=== PATIENT | male | born 1955 | race Caucasian/White ===

== ENCOUNTER 2020-05-22 07:21 | Inpatient (IN) | payer BC ==
[~2020-05-22] VITALS: Ht 188 cm; Wt 98.5 kg
[2020-05-22] MEDS ORDERED: SODIUM CHLORIDE FLUSH 10ML SYR IVF ONE (07:30)
[2020-05-22] MEDS ORDERED: PANTOPRAZOLE 80 MG in SODIUM CHLORIDE 0.9% 100 ML IV SCH (07:30)
[2020-05-22] MEDS ORDERED: VERA180T6 PO (07:38)
[2020-05-22] MEDS ORDERED: AZEL137S4 NAS (07:38)
[2020-05-22 07:56] LABS: BASOPHILS % (AUTO) 0 % (0-1); EOSINOPHILS % (AUTO) 0 % (1-7); LYMPHOCYTES % (AUTO) 7 % (22-44); MEAN CORPUSCULAR HEMOGLOBIN 28.5 pg (27.5-34.5); MEAN CORPUSCULAR HGB CONC 32.9 g/dL (33.2-36.2); MONOCYTES % (AUTO) 5 % (2-9); NEUTROPHILS % (AUTO) 88 % (42-75); PLATELET COUNT 194 x10^3/uL (130-400); RED BLOOD COUNT 2.25 x10^6/uL (4.38-5.82); RED CELL DISTRIBUTION WIDTH 20.5 % (9.4-14.8)
[2020-05-22 08:01] LABS: ALBUMIN 2.1 g/dL (3.4-5.0); ANION GAP 6 mmol/L (5-15); CALCIUM 9.3 mg/dL (8.5-10.1); CHLORIDE 106 mmol/L (98-107); CREATININE 1.21 mg/dL (0.7-1.3)
[2020-05-22 08:03] LABS: INTERNATIONAL NORMALIZED RATIO 1.1 (0.93-1.1); PROTHROMBIN TIME 11.6 Seconds (9.6-11.5)
[2020-05-22] MEDS ORDERED: LISI-170 PO (08:04)
[2020-05-22] MEDS ORDERED: ALLO100T30 PO (08:04)
[2020-05-22] MEDS ORDERED: FLUT1BLS10 INH (08:06)
[2020-05-22] MEDS ORDERED: ALBU8.5H8 INH (08:06)
[2020-05-22] MEDS ORDERED: OMEP-110 PO (08:07)
[2020-05-22] MEDS ORDERED: AMIO200T42 PO (08:08)
[2020-05-22] MEDS ORDERED: ATOR40TA PO (08:09)
[2020-05-22] MEDS ORDERED: SODI1TAB15 PO (08:10)
[2020-05-22 08:41] LABS: MD SCAN
--- NOTE | 2020-05-22 09:25 | NUR ---
PROTONIX DRIP STARTED. PT TO OR FOR EGD WITH DR. LOCK AT THIS TIME.
[2020-05-22] MEDS ORDERED: DEXAMETHASONE 4 MG/ML, 1ML ONE ×2 (09:53)
[2020-05-22] MEDS ORDERED: PROPOFOL 10 MG/ML, 20ML ONE (09:53)
[2020-05-22] MEDS ORDERED: LABETALOL 5MG/ML, 20ML IV PRN (10:00)
[2020-05-22] MEDS ORDERED: ONDANSETRON 2MG/ML, 2ML IVPush PRN ×2 (10:00→15:00)
[2020-05-22] MEDS ORDERED: OXYcodone 5 MG/5 ML ORAL.SOL UDC PO PRN (10:00)
[2020-05-22] MEDS ORDERED: MIDAZOLAM 1 MG/ML, 2ML IV PRN (10:00)
[2020-05-22] MEDS ORDERED: hydrALAzine 20 MG/ML, 1ML IV PRN (10:00)
[2020-05-22] MEDS ORDERED: DIPHENHYDRAMINE 50 MG/ML, 1ML IVPush PRN (10:00)
[2020-05-22] MEDS ORDERED: HYDROmorphone 1 MG/ML, 1ML INJ IVPush PRN (10:00)
[2020-05-22] MEDS ORDERED: PROMETHAZINE 12.5 MG SUPP PR PRN (10:00)
[2020-05-22] MEDS ORDERED: FENTANYL PF 100 MCG/2ML IV PRN (10:00)
[2020-05-22] MEDS ORDERED: DIAZEPAM 5 MG/ML, 2ML IVPush PRN (10:00)
[2020-05-22] MEDS ORDERED: ALBUTEROL SULFATE 2.5 MG/3 ML NPPB PRN (10:00)
[2020-05-22] MEDS ORDERED: PROMETHAZINE 25 MG/ML, 1ML IVPush PRN (10:00)
[2020-05-22] MEDS ORDERED: MEPERIDINE/PF 25MG/0.5ML IVPush PRN (10:00)
[2020-05-22] MEDS ORDERED: EPHEDRINE 50 MG/ML, 1ML IVPush PRN (10:00)
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
[2020-05-22 12:07] VITALS: BP 124/78
--- NOTE | 2020-05-22 12:10 | NUR ---
2ND UNIT OF PRBCs STARTED (THIRD UNIT TOTAL INCLUDING 1ST STARTED AT [facility]). VS UPDATED AND WNL. PT RESTING. URINAL GIVEN.
[2020-05-22 13:17] VITALS: BP 121/76
--- NOTE | 2020-05-22 13:52 | NUR ---
BLOOD STILL TRANSFUSING AT TIME OF TRASPORT, FLOOR UPDATED
[2020-05-22 14:11] VITALS: BP 138/79
[2020-05-22 14:14] VITALS: BP 138/79
[2020-05-22] MEDS ORDERED: morphine SULFATE 10 MG/ML, 1ML IVPush PRN (15:00)
[2020-05-22] MEDS ORDERED: ACETAMINOPHEN 325 MG TABLET PO PRN (15:00)
[2020-05-22] MEDS: PANTOPRAZOLE 40 MG IV IVPush SCH ×2 (15:26→21:26)
[2020-05-22 19:09] VITALS: BP 123/76
[2020-05-22] MEDS: ATORVASTATIN 40 MG TABLET PO SCH (21:26)
[2020-05-22] MEDS ORDERED: OMNIPAQUE 350 MG/ML, 100ML BOTTLE ONE (23:07)
[2020-05-23 00:18] VITALS: BP 138/80
[2020-05-23 05:07] LABS: BASOPHILS % (AUTO) 0 % (0-1); EOSINOPHILS % (AUTO) 0 % (1-7); LYMPHOCYTES % (AUTO) 7 % (22-44); MEAN CORPUSCULAR HEMOGLOBIN 28.4 pg (27.5-34.5); MEAN CORPUSCULAR HGB CONC 33.4 g/dL (33.2-36.2); MEAN PLATELET VOLUME 8.2 fL (7.4-10.4); MONOCYTES % (AUTO) 9 % (2-9); NEUTROPHILS % (AUTO) 84 % (42-75); PLATELET COUNT 191 x10^3/uL (130-400); RED BLOOD COUNT 2.89 x10^6/uL (4.38-5.82); RED CELL DISTRIBUTION WIDTH 19.3 % (9.4-14.8)
[2020-05-23 05:08] LABS: MD NO
[2020-05-23 05:19] LABS: CHLORIDE 104 mmol/L (98-107)
[2020-05-23 05:34] LABS: ALANINE AMINOTRANSFERASE 22 U/L (12-78); ALKALINE PHOSPHATASE 65 U/L (45-117); ANION GAP 6 mmol/L (5-15); BILIRUBIN,TOTAL 0.9 mg/dL (0.2-1.0); CALCIUM 9.4 mg/dL (8.5-10.1); CREATININE 0.92 mg/dL (0.7-1.3); TOTAL PROTEIN 5.9 g/dL (6.4-8.2)
[2020-05-23 07:42] VITALS: BP 150/86
[2020-05-23] MEDS: VERAPAMIL ER 180MG TABLET.ER PO SCH (08:56)
[2020-05-23] MEDS: AMIODARONE 200 MG TABLET PO SCH (08:56)
[2020-05-23] MEDS: ALLOPURINOL 100 MG TABLET PO SCH (08:57)
[2020-05-23] MEDS ORDERED: LISINOPRIL 20 MG TABLET PO SCH ×2 (09:00→11:30)
[2020-05-23] MEDS ORDERED: OMEPRAZOLE 20 MG CAPSULE.DR PO SCH (09:00)
[2020-05-23] MEDS ORDERED: ALBUTEROL HFA 90 MCG/SPRAY INH PRN (09:30)
[2020-05-23] MEDS: PANTOPRAZOLE 40 MG IV IVPush SCH ×2 (10:21→21:46)
[2020-05-23 11:23] VITALS: BP 147/85
[2020-05-23] MEDS: ALBUTEROL HFA 90 MCG/SPRAY INH SCH ×2 (11:30→21:00)
[2020-05-23 12:18] VITALS: BP 147/85
[2020-05-23] MEDS ORDERED: DIPHENHYDRAMINE 25 MG CAPSULE PO PRN (18:30)
[2020-05-23] MEDS ORDERED: ALBUTEROL HFA 90 MCG/SPRAY INH SCH (21:00)
[2020-05-23 21:25] VITALS: BP 108/68
[2020-05-23] MEDS: ATORVASTATIN 40 MG TABLET PO SCH (21:46)
[2020-05-24 01:54] VITALS: BP 123/79
[2020-05-24 07:45] VITALS: BP 119/79
[2020-05-24] MEDS ORDERED: VERAPAMIL ER 120MG TABLET.ER ONE (08:26)
[2020-05-24] MEDS ORDERED: FLUTICASONE/VILANTEROL 100-25MCG/INH INH SCH (09:00)
[2020-05-24] MEDS ORDERED: PANT40TA3 PO (09:32)
[2020-05-24] MEDS: VERAPAMIL ER 180MG TABLET.ER PO SCH (09:46)
[2020-05-24] MEDS: AMIODARONE 200 MG TABLET PO SCH (09:46)
[2020-05-24] MEDS: ALBUTEROL HFA 90 MCG/SPRAY INH SCH (09:46)
[2020-05-24] MEDS: ALLOPURINOL 100 MG TABLET PO SCH (09:46)
[2020-05-24 09:48] VITALS: BP 111/68
[2020-05-24] MEDS: PANTOPRAZOLE 40 MG IV IVPush SCH (10:01)
[2020-05-24 12:57] VITALS: BP 138/87
== END 2020-05-24 13:50 | disposition home or self-care (01) | DRG 378 ==
LOC: EDSEX 07:21 → ED 07:49 → EDIP 08:29 → 4WST 13:50 → DCLOUNGE 05-24 13:44
PROVIDERS: ADMIT Internal Medicine; ATTEND Internal Medicine
PROC: 0DB68ZX Excision of Stomach, Via Natural or Artificial Opening Endoscopic, Diagnostic (ICD-10-PCS; 2020-05-22)
PROC: 30233N1 Transfusion of Nonautologous Red Blood Cells into Peripheral Vein, Percutaneous Approach (ICD-10-PCS; principal; 2020-05-22 09:15)
DX: K92.0 Hematemesis (principal); D62 Acute posthemorrhagic anemia; E87.1 Hypo-osmolality and hyponatremia; J98.11 Atelectasis; M48.56XA Collapsed vertebra, not elsewhere classified, lumbar region, initial encounter for fracture; E78.00 Pure hypercholesterolemia, unspecified; E78.5 Hyperlipidemia, unspecified; E86.1 Hypovolemia; E88.09 Other disorders of plasma-protein metabolism, not elsewhere classified; I10 Essential (primary) hypertension; I25.10 Atherosclerotic heart disease of native coronary artery without angina pectoris; I48.91 Unspecified atrial fibrillation; I71.4 Abdominal aortic aneurysm, without rupture; J44.9 Chronic obstructive pulmonary disease, unspecified; S98.139A Complete traumatic amputation of one unspecified lesser toe, initial encounter; Z20.828 Contact with and (suspected) exposure to other viral communicable diseases; X58.XXXA Exposure to other specified factors, initial encounter; Z86.718 Personal history of other venous thrombosis and embolism; Z87.891 Personal history of nicotine dependence; Z89.412 Acquired absence of left great toe; Y93.89 Activity, other specified; Y92.89 Other specified places as the place of occurrence of the external cause; Y99.8 Other external cause status
CPT/HCPCS: 36415; 71260; 74177; 80048; 80053; 82040; 83605; 83735; 84100; 84443; 85014; 85018; 85025; 85610; 86850; 86900; 86923; 88305; 88342; 93005; 99291; G0378; J1100; J2704; Q9967; C9113; P9016; Q0163

== ENCOUNTER 2020-06-04 16:38 | Inpatient (IN) | payer BC ==
[~2020-06-04] VITALS: Ht 188 cm; Wt 93.5 kg
[~2020-06-04 16:38] MED LIST: ALBU8.5H8 INH; ALLO100T30 PO; AMIO200T42 PO; ATOR40TA PO; AZEL137S4 NAS; FLUT1BLS10 INH; LISI-170 PO; OMEP-110 PO; PANT40TA3 PO; SODI1TAB15 PO; VERA180T6 PO
--- NOTE | 2020-06-04 17:00 | NUR ---
POTASSIUM DRIP (STARTED AT [facility]) COMPLETED UPON ARRIVAL. PT AWAKE, ORIENTED X0 - UNABLE TO RECALL NAME.
--- NOTE | 2020-06-04 17:18 | NUR ---
DR BURNETTE AT BS.
[2020-06-04] MEDS ORDERED: SODIUM CHLORIDE FLUSH 10ML SYR IVF ONE (17:30)
[2020-06-04] MEDS ORDERED: PLEASE ENTER ALLERGIES MC SCH (17:30)
[2020-06-04] MEDS ORDERED: PANTOPRAZOLE 40 MG IV IVPush ONE (17:30)
[2020-06-04] MEDS ORDERED: PLEASE ENTER HEIGHT AND WEIGHT MC SCH (17:30)
[2020-06-04] MEDS ORDERED: SODIUM CHLORIDE 0.9%, 500ML IVBOLUS ONE (17:30)
[2020-06-04] MEDS ORDERED: PANTOPRAZOLE 40 MG IV ONE (17:31)
--- NOTE | 2020-06-04 17:31 | NUR ---
LAB AT BS. PT ENDORSED TO BREAK RNKali
--- NOTE | 2020-06-04 17:36 | NUR ---
TASK RN NOTE: YELLOW SLIP SENT TO PHARMACY. LAB AT BEDSIDE. NAD NOTED IN PT AT THIS TIME. PT LOOKS TO RN WHEN HIS NAME IS CALLED, BUT DOES NOT ANSWER ANY QUESTIONS THEN SEVERAL MINUTES LATER WILL INTERACT WITH RN, ANSWER SIMPLE QUESTIONS AND FOLLOW SIMPLE COMMANDS. IVF INFUSING PER EMAR.
[2020-06-04 17:59] LABS: MEAN CORPUSCULAR HEMOGLOBIN 28.6 pg (27.5-34.5); MEAN CORPUSCULAR HGB CONC 32.7 g/dL (33.2-36.2); MEAN PLATELET VOLUME 9.3 fL (7.4-10.4); PLATELET COUNT 79 x10^3/uL (130-400); RED BLOOD COUNT 2.26 x10^6/uL (4.38-5.82); RED CELL DISTRIBUTION WIDTH 19.6 % (9.4-14.8)
--- NOTE | 2020-06-04 18:07 | NUR ---
TASK RN NOTE: CRITICAL LABS H&H 6.5&19.8 DR ROSEN AWARE.
[2020-06-04 18:08] LABS: ALBUMIN 1.8 g/dL (3.4-5.0); ANION GAP 5 mmol/L (5-15); CALCIUM 12.8 mg/dL (8.5-10.1); CHLORIDE 106 mmol/L (98-107)
--- NOTE | 2020-06-04 18:13 | NUR ---
PT REPORT FROM CARMEN COWART RN. PT CARE TO BE RESUMED.
[2020-06-04 18:20] LABS: ALANINE AMINOTRANSFERASE 24 U/L (12-78); ALKALINE PHOSPHATASE 53 U/L (45-117); BILIRUBIN,TOTAL 0.6 mg/dL (0.2-1.0); CREATININE 1.81 mg/dL (0.7-1.3); INTERNATIONAL NORMALIZED RATIO 1.25 (0.93-1.1); PROTHROMBIN TIME 13.2 Seconds (9.6-11.5); TOTAL PROTEIN 5.2 g/dL (6.4-8.2)
[2020-06-04] MEDS: PANTOPRAZOLE 80 MG in SODIUM CHLORIDE 0.9% 100 ML IV SCH (18:27)
--- NOTE | 2020-06-04 18:28 | NUR ---
NS BOLUS COMPLETED. PROTONIX DRIP HUNG; INFUSING AT 8MG/HR (10ML/HR) VIA PUMP USING LAC IV SITE; SITE PATENT.
[2020-06-04 18:30] LABS: MD YES
--- NOTE | 2020-06-04 18:30 | NUR ---
TO CT PER DOMINICK
[2020-06-04 18:31] LABS: BAND#(MANUAL) 0.07 x10^3/uL; BANDS%(MANUAL) 1 % (0-7); EOS#(MANUAL) 0.21 x10^3/uL (0.0-0.4); EOS% (MANUAL) 3 % (1-7); LYMPH#(MANUAL) 0.42 x10^3/uL (1-3.4); LYMPHS% (MANUAL) 6 % (22-44); MONOS#(MANUAL) 0.28 x10^3/uL (0.3-2.7); MONOS% (MANUAL) 4 % (2-9); SEG#(MANUAL) 6.02 x10^3/uL (1.8-6.8); SEGS% (MANUAL) 86 % (42-75)
[2020-06-04 18:32] LABS: ANISOCYTOSIS 1+; OVALOCYTES 1+; POLYCHROMASIA 1+
[2020-06-04 18:33] LABS: <PLATELET ESTIMATE> DECREASED; <PLT MORPHOLOGY> NORMAL PLT MORPH
[2020-06-04 18:34] LABS: FREE T4 (FREE THYROXINE) 1.53 ng/dL (0.76-1.46)
--- NOTE | 2020-06-04 19:05 | NUR ---
PURPLE SLIP TUBED TO BLOOD BANK
--- NOTE | 2020-06-04 19:27 | NUR ---
PT AWAKE, CONFUSED, ORIENTED X0. PT UNABLE TO COMPREHEND BLOOD TRANSFUSION INFORMATION, AT THIS TIME; DR BURNETTE AWARE; TRANSFUSION TO PROCEED.
[2020-06-04 19:58] VITALS: BP 178/71
--- NOTE | 2020-06-04 20:01 | NUR ---
PT REFUSING ORAL TEMP RECHECK.
[2020-06-04] MEDS ORDERED: DEXTROSE 50%, 50ML SYRINGE ONE (20:10)
--- NOTE | 2020-06-04 20:14 | NUR ---
DEXTROSE 25ML GIVEN PER EMAR
[2020-06-04 20:16] VITALS: BP 173/76
--- NOTE | 2020-06-04 20:20 | NUR ---
DR RILEY AT BS
[2020-06-04] MEDS: D5%-0.45NACL+KCL 20MEQ 1,000 ML IV SCH (20:23)
--- NOTE | 2020-06-04 20:23 | NUR ---
D5-0.45 NS W/ 20MeQ KCL HUNG; INFUSING AT 150ML/HR VIA PUMP.
[2020-06-04] MEDS ORDERED: DEXTROSE 50%, 50ML VIAL IVPush ONE (20:30)
[2020-06-04 20:33] VITALS: BP 182/74
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
[2020-06-04 20:50] VITALS: BP 181/78
--- NOTE | 2020-06-04 20:58 | NUR ---
STRAIGHT CATH UA SPECIMEN OBTAINED W/ HOLDING ASSIST FROM DRAPERY CUTTER MACHINE.
--- NOTE | 2020-06-04 20:59 | NUR ---
PT CONTINUALLY BENDING RT ARM AND CAUSING TRANSFUSION PUMP TO ALARM. PT HAS BEEN FREQUENTLY REMINDED TO NO BEND ARM SO TIGHTLY.
--- NOTE | 2020-06-04 21:06 | NUR ---
TRANSFUSION COMPLETED.
[2020-06-04 21:52] LABS: MICROSCOPIC INDICATED
--- NOTE | 2020-06-04 21:55 | NUR ---
PT PULLED LAC IV OUT AND MONITOR LEADS OFF. INFUSIONS HELD. DRESSING APPLIED TO IV SITE. MONITOR LEADS REATTACHED TO PT. INFUSIONS RESTARTED.
--- NOTE | 2020-06-04 22:04 | NUR ---
BEDSIDE PT REPORT TO DANAE THORNTON. PT CARE TRANSFERRED.
--- NOTE | 2020-06-04 22:16 | NUR ---
Director Medical Safety confirmed with pharmacy that protonix drip and D5W-0.45NaCL +KCL 20meq are compatible to be Y ported together.
--- NOTE | 2020-06-04 22:50 | NUR ---
RECEIVED V/O FROM DR SORIA FOR CHEST XRAY. ORDER INPUT.
--- NOTE | 2020-06-04 22:52 | NUR ---
Hospitalist down to see patient. Told MD concern about patient belly breathing with resp in high 20's . Portable chest xray ordered. Report given to Carrie FINK [id number]
--- NOTE | 2020-06-04 22:53 | NUR ---
DR SORIA NOTIFIED PT HAD A CHEST CT. VERBAL ORDER TO CANCEL CXR.
[2020-06-04] MEDS ORDERED: BISACODYL 10 MG SUPP PR PRN (23:00)
[2020-06-04] MEDS ORDERED: ONDANSETRON 2MG/ML, 2ML IVPush PRN (23:00)
[2020-06-04] MEDS ORDERED: ACETAMINOPHEN 325 MG TABLET PO PRN (23:00)
[2020-06-04] MEDS ORDERED: PROMETHAZINE 25 MG/ML, 1ML IM PRN (23:00)
[2020-06-04] MEDS ORDERED: LABETALOL 5MG/ML, 20ML IVPush PRN (23:00)
[2020-06-04] MEDS ORDERED: POLYETHYLENE GLYCOL 17 GM PACKET PO PRN (23:00)
[2020-06-04] MEDS ORDERED: OXYcodone IR 5MG TABLET PO PRN (23:00)
[2020-06-04] MEDS ORDERED: DOCUSATE 100 MG CAPSULE PO PRN (23:00)
[2020-06-04] MEDS ORDERED: ONDANSETRON ODT 4 MG PO PRN (23:00)
[2020-06-04] MEDS ORDERED: ALBUTEROL HFA 90 MCG/SPRAY INH PRN (23:30)
[2020-06-04] MEDS ORDERED: ATORVASTATIN 40 MG TABLET PO SCH (23:30)
[2020-06-05 00:06] VITALS: BP 172/76
[2020-06-05] MEDS: morphine SULFATE 10 MG/ML, 1ML IVPush PRN ×3 (00:41→11:39)
[2020-06-05] MEDS ORDERED: ALBUTEROL HFA 90 MCG/SPRAY INH PRN (01:30)
[2020-06-05 01:34] VITALS: BP 172/76
[2020-06-05] MEDS: D5%-0.45NACL+KCL 20MEQ 1,000 ML IV SCH ×2 (02:33→10:03)
[2020-06-05] MEDS: PANTOPRAZOLE 80 MG in SODIUM CHLORIDE 0.9% 100 ML IV SCH (04:47)
[2020-06-05 07:01] VITALS: BP 186/71
[2020-06-05] MEDS ORDERED: VERAPAMIL ER 120MG TABLET.ER ONE (07:46)
[2020-06-05] MEDS ORDERED: FLUTICASONE PROPION HOMEINH SCH (09:00)
[2020-06-05] MEDS ORDERED: ALLOPURINOL 100 MG TABLET PO SCH (09:00)
[2020-06-05] MEDS ORDERED: LISINOPRIL 20 MG TABLET PO SCH (09:00)
[2020-06-05] MEDS ORDERED: VERAPAMIL ER 180MG TABLET.ER PO SCH (09:00)
[2020-06-05] MEDS ORDERED: AMIODARONE 200 MG TABLET PO SCH (09:00)
[2020-06-05] MEDS ORDERED: SALMETEROL HOMEINH SCH (09:00)
[2020-06-05 09:14] LABS: ALBUMIN 1.7 g/dL (3.4-5.0); CALCIUM 13.1 mg/dL (8.5-10.1)
[2020-06-05 09:20] LABS: ALANINE AMINOTRANSFERASE 20 U/L (12-78); ALKALINE PHOSPHATASE 49 U/L (45-117); BILIRUBIN,TOTAL 0.7 mg/dL (0.2-1.0); CHOL/HDL RATIO 8.4; CHOLESTEROL, TOTAL 67 mg/dL (140-239); CREATININE 2.09 mg/dL (0.7-1.3); HDL CHOL % 12 % (26-37); HDL CHOLESTEROL (DIRECT) 8 mg/dL (40-60); LDL CHOLESTEROL,CALCULATED 20 mg/dL (54-169); LDL/HDL RATIO 2.5 (0.5-3.0); TRIGLYCERIDES 197 mg/dL (50-200); VLDL CHOLESTEROL 39 mg/dL (0-25)
[2020-06-05 09:57] LABS: ANION GAP 6 mmol/L (5-15); CHLORIDE 110 mmol/L (98-107)
[2020-06-05] MEDS ORDERED: DEXTROSE 50%, 50ML SYRINGE IVPush ONE (10:00)
[2020-06-05] MEDS ORDERED: MAGNESIUM SULFATE PMX 2GM/50ML 50 ML IV ONE (10:00)
[2020-06-05] MEDS ORDERED: methylPREDNISolone SOD SUCC 40 MG/ML IV SCH (10:30)
[2020-06-05] MEDS ORDERED: POTASSIUM CHLORIDE 40 MEQ in SODIUM CHLORIDE 0.9% 500 ML IV ONE (10:30)
[2020-06-05] MEDS ORDERED: CALCITONIN SALMON 200 UNITS/ML, 2ML SQ SCH (10:30)
[2020-06-05 10:45] VITALS: BP 103/68
[2020-06-05 11:42] VITALS: BP 80/56
[2020-06-05] MEDS ORDERED: MORPHINE SULFATE 4 MG/ML, 1ML IV ONE (12:00)
[2020-06-05] MEDS ORDERED: SCOPOLAMINE 1MG PATCH TD PRN (12:00)
[2020-06-05] MEDS ORDERED: SODIUM CHLORIDE FLUSH 10ML SYR IVF SCH (12:00)
[2020-06-05] MEDS ORDERED: LORazepam 2 MG/ML, 1ML IV ONE (12:00)
[2020-06-05] MEDS ORDERED: MORPHINE 30MG/30ML PCA.SYR IV PRN (12:00)
[2020-06-05] MEDS ORDERED: ONDANSETRON 2MG/ML, 2ML IVPush PRN (12:00)
[2020-06-05] MEDS ORDERED: DEXTROSE 5% IV PRN (12:30)
[2020-06-05] MEDS ORDERED: MORPHINE SULFATE IV PRN (12:30)
[2020-06-05] MEDS: LORazepam 2 MG/ML, 1ML IVPush PRN ×8 (12:56→18:24)
[2020-06-05] MEDS: ATROPINE OPHTH SOLN 1%, 5ML PO PRN ×3 (12:56→15:27)
[2020-06-05] MEDS ORDERED: HYDROmorphone/PF 20 MG in SODIUM CHLORIDE 0.9% 98 ML IV PRN (18:00)
[2020-06-05] MEDS ORDERED: HYDROmorphone 2 MG/ML, 1ML IVPush ONE (18:30)
== END 2020-06-05 22:01 | disposition expired | DRG 811 ==
LOC: ED 18:17 → EDIP 19:35 → 4WST 23:45 → 4NW 06-05 17:09
PROVIDERS: ADMIT Internal Medicine; ATTEND Internal Medicine
PROC: 0T9B70Z Drainage of Bladder with Drainage Device, Via Natural or Artificial Opening (ICD-10-PCS; principal; 2020-06-04)
PROC: 30233N1 Transfusion of Nonautologous Red Blood Cells into Peripheral Vein, Percutaneous Approach (ICD-10-PCS; 2020-06-04)
DX: D58.9 Hereditary hemolytic anemia, unspecified (principal); G93.41 Metabolic encephalopathy; K25.4 Chronic or unspecified gastric ulcer with hemorrhage; S82.201A Unspecified fracture of shaft of right tibia, initial encounter for closed fracture; D68.59 Other primary thrombophilia; C85.10 Unspecified B-cell lymphoma, unspecified site; M48.56XA Collapsed vertebra, not elsewhere classified, lumbar region, initial encounter for fracture; N17.9 Acute kidney failure, unspecified; D62 Acute posthemorrhagic anemia; E16.2 Hypoglycemia, unspecified; Z51.5 Encounter for palliative care; D69.6 Thrombocytopenia, unspecified; E78.00 Pure hypercholesterolemia, unspecified; E78.5 Hyperlipidemia, unspecified; E83.52 Hypercalcemia; E86.0 Dehydration; E87.6 Hypokalemia; I10 Essential (primary) hypertension; I25.10 Atherosclerotic heart disease of native coronary artery without angina pectoris; I48.91 Unspecified atrial fibrillation; I71.9 Aortic aneurysm of unspecified site, without rupture; J44.9 Chronic obstructive pulmonary disease, unspecified; K21.9 Gastro-esophageal reflux disease without esophagitis; S82.309A Unspecified fracture of lower end of unspecified tibia, initial encounter for closed fracture; S82.409A Unspecified fracture of shaft of unspecified fibula, initial encounter for closed fracture; Z87.891 Personal history of nicotine dependence; Z86.718 Personal history of other venous thrombosis and embolism; W18.39XA Other fall on same level, initial encounter; Y93.89 Activity, other specified; Y92.89 Other specified places as the place of occurrence of the external cause; Y99.8 Other external cause status
CPT/HCPCS: 36415; 36430; 36600; 70450; 71045; 71250; 80053; 80061; 81001; 82140; 82728; 82803; 82962; 83036; 83605; 83615; 83735; 84145; 84439; 84443; 85014; 85018; 85025; 85610; 85730; 86850; 86900; 86923; 87040; 87086; 96374; G0378; J1170; J3480; C9113; J0630; J2060; J2270; J2920; J3475; J7040; P9016